=== PATIENT | female | born 1965 | race Caucasian/White ===

== ENCOUNTER 2017-04-12 22:12 | Emergency (ER) | payer OTHER ==
[~2017-04-12] VITALS: Ht 167.6 cm; Wt 66.3 kg
[~2017-04-12 22:12] MED LIST: CILOXAN 0.100 DROP/5 LEFT EYE; CYMBALTA60 MG PO; LAMICTAL150 M1 PO; NORCO 5/3251 TABLET PO; PERCOCET 5/31 TABLET PO; XANAX0.25 MG PO
[2017-04-13 00:42] VITALS: BP 127/95
== END 2017-04-13 00:42 | disposition home or self-care (01) ==
LOC: EME 22:12 → RME 22:12
DX: S51.811A Laceration without foreign body of right forearm, initial encounter (principal); W25.XXXA Contact with sharp glass, initial encounter; C95.90 Leukemia, unspecified not having achieved remission; Z23 Encounter for immunization
CPT/HCPCS: 73090; 99281; 99284

== ENCOUNTER → 2017-05-27 | Outpatient (CLI) | payer OTHER ==
[~2017-05-27] VITALS: Ht 170.2 cm; Wt 65.8 kg
[~2017-05-27] MED LIST changes: +CLINORIL200 MG PO; +LAMICTAL200 MG PO; +METAXALL800 MG PO; +VALTREX1000 MG PO
[2017-05-27 10:33] LABS: MCH 31.6 PG (29.0-34.0); MCHC 32.8 G/DL (30.0-36.0); MCV 96.6 FL (83-99); MEAN PLAT.VOLUME 11.5 uM^3 (9.5-12.4); NRBC (%) 0.1 /100 WBC (0-0); PLATELET COUNT 278 K/uL (156-360); RBC DIS.WIDTH-CV 13.1 % (11.8-14.6); RBC DIS.WIDTH-SD 47.1 % (39-53); RED BLOOD COUNT 4.14 M/uL (3.80-5.20); WHITE BLOOD COUNT 20.6 K/uL (4.1-10.2)
[2017-05-27 10:39] LABS: PROTHROMBIN TIME 10.8 SEC (10.2-12.9)
[2017-05-27 10:42] LABS: PTT 28.9 SEC (25-37)
[2017-05-27 11:30] LABS: ABS NEUTROPHIL COUNT 7.8; ANISOCYTOSIS 1+; ATYPICAL LYMPHOCYTE 6.1 %; EOSINOPHIL ABS CT 0.5; EOSINOPHILS 2.6 % (0-5.0); INSTRUMENT ABS NEUTROPHIL CT 6.2 K/uL; LYMPHOCYTES 47.6 % (15.0-45.0); MACROCYTES 1+; PLAT.SUFFICIENCY ADEQUATE; SMUDGE CELLS 43.2
== END | disposition home or self-care (01) ==
LOC: OPR 09:32 → EDSTATUS 10:00 → OPR 10:00
PROVIDERS: Internal Medicine Hematology & Oncology
DX: C91.10 Chronic lymphocytic leukemia of B-cell type not having achieved remission (principal); F41.8 Other specified anxiety disorders; F31.9 Bipolar disorder, unspecified; E04.2 Nontoxic multinodular goiter; Z80.42 Family history of malignant neoplasm of prostate; Z80.6 Family history of leukemia
CPT/HCPCS: 38221; G0364; 77012; 85025; 85610; 85730; J3010